=== PATIENT | female | born 1950 | race Caucasian/White ===

== ENCOUNTER 2022-09-23 09:31 | Outpatient (CLI) | payer MEDICARE, BC, SELFPAY ==
[2022-09-23 15:56] LABS: TSH With Reflex to FT4* 0.058 uIU/mL (0.270-4.200)
[2022-09-23 16:41] LABS: Free T4 Free Thyroxine* 1.03 ng/dL (0.70-1.85)
== END 2022-09-23 09:32 | disposition home or self-care (01) ==
LOC: LONREF 09:32
PROVIDERS: PCP Family Medicine; Visit Provider Family Medicine
DX: I10 Essential (primary) hypertension (principal); E78.5 Hyperlipidemia, unspecified; R94.6 Abnormal results of thyroid function studies
CPT/HCPCS: 84439; 84443

== ENCOUNTER 2022-12-18 07:47 | Outpatient (CLI) | payer MEDICARE, BC, SELFPAY ==
--- NOTE | 2022-12-18 08:15 | CRLHL7_ITS ---
For Patients: As a result of the Century Cures Act, medical imaging exams and procedure reports are released immediately into your electronic medical record. You may view this report before your referring provider. If you have questions, please contact your health care provider. INDICATION: Low back pain. TECHNIQUE: Multiplanar multisequence noncontrast MR images acquired through the lumbar spine. COMPARISON: Lumbar spine radiographs 03/04/2022. FINDINGS: Mild leftward lumbar curvature. The lumbar lordosis is preserved. Vertebral body heights maintained. No acute fracture or spondylolisthesis. No T1 hypointense marrow replacing lesions or significant marrow edema. Normal conus terminates at the L1-2. T12-L1 through L2-3: Mild disc degeneration. No spinal canal or neural foraminal narrowing. L3-4: Mild disc degeneration. Shallow circumferential disc bulge. No spinal canal or neural foraminal narrowing. L4-5: [id number] disc degeneration. Mild disc height loss. Shallow left eccentric disc bulge minimally narrows the left lateral recess. Mild facet arthropathy. No spinal canal or neural foraminal narrowing. L5-S1: Mild disc degeneration. Mild facet arthropathy. No spinal canal or neural foraminal narrowing. IMPRESSION: 1. Mild multilevel lumbar spondylosis without spinal canal or neural foraminal stenosis. 2. Mild facet arthropathy in the lower lumbar spine. Dictated by Chilo Dunaway MD @ 12/18/2022 9:48:44 AM (Electronically Signed)
== END 2022-12-18 07:48 | disposition home or self-care (01) ==
LOC: MRI 07:48
PROVIDERS: PCP Family Medicine; Visit Provider Family Medicine
DX: M54.50 Low back pain, unspecified (principal); M47.816 Spondylosis without myelopathy or radiculopathy, lumbar region
CPT/HCPCS: 72148

== ENCOUNTER 2024-01-14 08:44 | Outpatient (CLI) | payer MEDICARE, BC, SELFPAY | END 2024-01-14 08:45 | disposition home or self-care (01) | PROVIDERS: PCP Family Medicine; Visit Provider Family Medicine | DX: E78.5 Hyperlipidemia, unspecified (principal); I10 Essential (primary) hypertension; R94.6 Abnormal results of thyroid function studies | CPT/HCPCS: 80048; 80061; 84439; 84443 ==

== ENCOUNTER 2025-01-22 08:28 | Outpatient (CLI) | payer MEDICARE, BC, SELFPAY | END 2025-01-22 08:29 | disposition home or self-care (01) | PROVIDERS: PCP Internal Medicine; Visit Provider Family Medicine | DX: R94.6 Abnormal results of thyroid function studies (principal); I10 Essential (primary) hypertension | CPT/HCPCS: 80048; 84439; 84443; 84480 ==

== ENCOUNTER 2025-01-31 07:58 | Outpatient (CLI) | payer MEDICARE, BC, SELFPAY ==
--- NOTE | 2025-01-31 08:15 | CRLHL7_ITS ---
For Patients: As a result of the Century Cures Act, medical imaging exams and procedure reports are released immediately into your electronic medical record. You may view this report before your referring provider. If you have questions, please contact your health care provider. INDICATION: Hypopituitarism Comparison none. TECHNIQUE: Multiplanar T1, T2, FLAIR and diffusion-weighted imaging.. Post gadolinium T1 weighted sequences. Additional pre and post gadolinium sequences of the sella. FINDINGS: Mild generalized volume loss. Scattered foci of T2/FLAIR signal hyperintensity within the white matter of both cerebral hemispheres consistent with chronic deep white matter small vessel ischemic changes or sequela migraine headache. No intracranial hemorrhage. No abnormal ventricular dilatation. Intracranial vascular flow voids are preserved. No mass effect or midline shift. No restricted diffusion to suggest acute ischemia. No abnormal enhancement or enhancing lesions within the brain parenchyma. Dedicated sequences of the sella demonstrates normal morphology of the pituitary gland. Normal infundibulum at midline. No sellar or suprasellar mass. Specifically, no discrete hypo enhancing nodule to suggest a microadenoma. No impingement of the optic chiasm. Normal cavernous sinuses bilaterally. Normal orbits bilaterally. Mild mucosal thickening within the visualized paranasal sinuses. Small left mastoid effusion. IMPRESSION: 1. No acute intracranial abnormality. 2. Mild generalized cerebral volume loss. Scattered foci of T2/FLAIR signal hyperintensity within the white matter a posterior hemispheres consistent with chronic deep white matter small vessel ischemic changes or sequela of migraine headache 3. No abnormal enhancement or enhancing lesions 4. Dedicated sequences of the sella demonstrates normal morphology of the pituitary gland. No sellar or suprasellar mass 5. Small left mastoid effusion Dictated by Peterson Dawson MD @ 01/31/2025 2:58:31 PM (Electronically Signed)
== END 2025-01-31 07:59 | disposition home or self-care (01) ==
LOC: MRI 07:59
PROVIDERS: PCP Family Medicine; Visit Provider Family Medicine
DX: R94.6 Abnormal results of thyroid function studies (principal); I67.82 Cerebral ischemia
CPT/HCPCS: 70553; A9575

== ENCOUNTER 2025-02-16 08:20 | Outpatient (CLI) | payer MEDICARE, BC, SELFPAY | END 2025-02-16 08:21 | disposition home or self-care (01) | LOC: NFLDREF 02-19 01:49 | PROVIDERS: PCP Family Medicine; Referring Provider Family Medicine; Visit Provider Family Medicine | DX: E03.9 Hypothyroidism, unspecified (principal) | CPT/HCPCS: 84439; 84443 ==

== ENCOUNTER 2025-05-11 09:58 | Outpatient (CLI) | payer MEDICARE, BC, SELFPAY | END 2025-05-11 09:59 | disposition home or self-care (01) | LOC: NFLDREF 05-13 05:51 | PROVIDERS: PCP Family Medicine; Referring Provider Family Medicine; Visit Provider Family Medicine | DX: E03.9 Hypothyroidism, unspecified (principal) | CPT/HCPCS: 84439; 84443 ==